=== PATIENT | female | born 1985 | race Caucasian/White ===

== ENCOUNTER 2020-03-14 16:49 | Emergency (ER) | payer OTHER ==
[~2020-03-14] VITALS: Ht 157.5 cm; Wt 58.2 kg
[2020-03-14 17:00] VITALS: BP 105/61
[2020-03-14 19:11] VITALS: BP 112/72
== END 2020-03-14 19:12 | disposition home or self-care (01) ==
LOC: MED 16:49
DX: O03.9 Complete or unspecified spontaneous abortion without complication (principal); Z3A.09 9 weeks gestation of pregnancy
CPT/HCPCS: 76801; 99284; Q0092

== ENCOUNTER 2021-05-05 18:13 | Emergency (ER) | payer OTHER ==
--- NOTE | 2021-05-05 18:42 | NUR ---
no answer at this time in lobby or outside
--- NOTE | 2021-05-05 18:51 | NUR ---
[id number]
--- NOTE | 2021-05-05 18:51 | NUR ---
pt called in lobby, no answer at this time
== END 2021-05-05 18:51 | disposition left against medical advice (07) ==
LOC: MED 18:13
DX: Z53.21 Procedure and treatment not carried out due to patient leaving prior to being seen by health care provider (principal)

== ENCOUNTER 2021-05-23 21:09 | Emergency (ER) | payer OTHER ==
[~2021-05-23] VITALS: Ht 157.5 cm; Wt 61.7 kg
[2021-05-23 22:09] VITALS: BP 118/69
--- NOTE | 2021-05-23 22:12 | NUR ---
PT GIVEN SPECIMEN CUP FOR URINE
[2021-05-24 00:03] LABS: APPEARANCE,URINE CLEAR (CLEAR); BILIRUBIN,URINE NEGATIVE (NEGATIVE); BLOOD, URINE 2+ (NEGATIVE); COLOR,URINE YELLOW (YELLOW); LEUKOCYTE ESTERASE ,URINE NEGATIVE (NEGATIVE); NITRITE, URINE NEGATIVE (NEGATIVE); PH,URINE 6.5 (5.0-9.0); UGLUCOSE NEGATIVE (NEGATIVE)
[2021-05-24 01:00] LABS: RBC,URINE 0-5 /HPF (0-5); WBC,URINE 0-5 /HPF (0-5)
--- NOTE | 2021-05-24 01:40 | NUR ---
CALLED PT TO NUMBER ON FILE, PT STATED SHE WENT HOME.
--- NOTE | 2021-05-24 01:41 | NUR ---
PT CLEARED FOR DISCHARGE BY DR. YOUSIF AND LEFT WITHOUT INSTRUCTIONS.
== END 2021-05-24 01:41 | disposition home or self-care (01) ==
LOC: MED 21:09
DX: O20.8 Other hemorrhage in early pregnancy (principal); Z3A.01 Less than 8 weeks gestation of pregnancy
CPT/HCPCS: 36415; 76817; 81001; 84702; 86900; 86901; 99284; Q0092

== ENCOUNTER 2021-10-08 20:50 | Emergency (ER) | payer OTHER ==
[~2021-10-08] VITALS: Ht 157.5 cm; Wt 66.7 kg
[2021-10-08 21:37] VITALS: BP 129/66
--- NOTE | 2021-10-08 21:43 | NUR ---
PATIENT AMBULATED TO THE BATHROOM FOR URINE COLLECTION
--- NOTE | 2021-10-08 21:46 | NUR ---
PATIENT TO LOBBY
--- NOTE | 2021-10-08 22:18 | NUR ---
PATIENT TO US VIA WC
[2021-10-08 22:25] LABS: APPEARANCE,URINE CLEAR (CLEAR); BILIRUBIN,URINE NEGATIVE (NEGATIVE); BLOOD, URINE NEGATIVE (NEGATIVE); COLOR,URINE YELLOW (YELLOW); LEUKOCYTE ESTERASE ,URINE NEGATIVE (NEGATIVE); NITRITE, URINE NEGATIVE (NEGATIVE); UGLUCOSE NEGATIVE (NEGATIVE)
--- NOTE | 2021-10-08 22:56 | NUR ---
ETHEL EXAMINING PATIENT IN LOBBY
--- NOTE | 2021-10-09 01:42 | NUR ---
Dot jimenez in [facility] - 10/09/21 at 0143 by DAVID KRISTINA TO ULTRASOUND
--- NOTE | 2021-10-09 01:43 | NUR ---
PATIENT TO ULTRASOUND
--- NOTE | 2021-10-09 01:57 | NUR ---
PT RETURN FROM ULTRASOUND
[2021-10-09 02:41] VITALS: BP 120/68
--- NOTE | 2021-10-09 02:44 | NUR ---
Patient discharged. Written and verbal after care instructions given and explained. Patient verbalized understanding. Ambulatory with steady gait. ID band removed. All questions addressed prior to discharge. Advised to follow up with PMD.
== END 2021-10-09 02:44 | disposition home or self-care (01) ==
LOC: MED 20:50
DX: O26.892 Other specified pregnancy related conditions, second trimester (principal); R10.30 Lower abdominal pain, unspecified; M54.50 Low back pain, unspecified; Z3A.15 15 weeks gestation of pregnancy
CPT/HCPCS: 76770; 76805; 81003; 81025; 87086; 99284; Q0092